=== PATIENT | female | born 1970 | race African-American/Black ===

== ENCOUNTER 2023-02-26 14:26 | Emergency (ER) | payer MEDICAID ==
[~2023-02-26] VITALS: Ht 162.6 cm; Wt 104.5 kg
[2023-02-26 14:28] VITALS: TEMP 98.5
[2023-02-26] MEDS ORDERED: KETOROLAC TROMETHAMINE 30 MG/ML VIAL IM ONE (15:45)
[2023-02-26 16:00] VITALS: BP 145/71; PULSE 78; RESP 17
[2023-02-26] MEDS ORDERED: IBUP-1492 PO (16:40)
== END 2023-02-26 16:44 | disposition home or self-care (01) ==
LOC: EMS 14:26
DX: S93.402A Sprain of unspecified ligament of left ankle, initial encounter (principal); Z98.51 Tubal ligation status; X58.XXXA Exposure to other specified factors, initial encounter; Y93.89 Activity, other specified; Y92.89 Other specified places as the place of occurrence of the external cause; Y99.8 Other external cause status
CPT/HCPCS: 99283; 73610; 96372; J1885

== ENCOUNTER 2023-12-20 23:44 | Emergency (ER) | payer MEDICAID ==
[~2023-12-20] VITALS: Ht 160 cm; Wt 90.0 kg
[~2023-12-20 23:44] MED LIST: IBUP-1492 PO
[2023-12-20 23:54] VITALS: TEMP 98.1
[2023-12-21] MEDS: PROPARACAINE HCL 0.5% 15 ML OPHTHALMIC SOLUTION OS ONE (03:18)
[2023-12-21] MEDS: ERYTHROMYCIN 0.5% 3.5 GM TUBE OPHTHALMIC OINTMENT OS ONE (03:19)
[2023-12-21] MEDS: FLUORESCEIN SODIUM 1 MG STRIP OS ONE (03:20)
[2023-12-21] MEDS ORDERED: ERYT3.5O8 OU (04:11)
[2023-12-21 04:28] VITALS: BP 169/100; PULSE 56; RESP 16
== END 2023-12-21 04:51 | disposition home or self-care (01) ==
LOC: EMS 23:44
DX: T15.02XA Foreign body in cornea, left eye, initial encounter (principal); T65.891A Toxic effect of other specified substances, accidental (unintentional), initial encounter; Z98.51 Tubal ligation status; Y92.89 Other specified places as the place of occurrence of the external cause
CPT/HCPCS: 65205; 65220; 99284; J9035; Z7502; Z7610

== ENCOUNTER 2025-07-21 18:36 | Emergency (ER) | payer MEDICAID, OTHER ==
[~2025-07-21] VITALS: Ht 160 cm; Wt 94.1 kg
[~2025-07-21 18:36] MED LIST changes: +ERYT3.5O8 OU
[2025-07-21 19:25] VITALS: TEMP 98.205296
[2025-07-21] MEDS: KETOROLAC TROMETHAMINE 30 MG/ML VIAL IM ONE (19:40)
[2025-07-21] MEDS: LIDOCAINE 5% TRANSDERMAL PATCH TD ONE (19:40)
[2025-07-21] MEDS ORDERED: LIDO-57 TP (19:56)
[2025-07-21] MEDS ORDERED: ACET-2247 PO (19:56)
[2025-07-21] MEDS ORDERED: IBUP-1492 PO (19:56)
[2025-07-21 20:30] VITALS: BP 142/73; PULSE 60; RESP 16; O2SAT 98
== END 2025-07-21 20:50 | disposition home or self-care (01) ==
LOC: EMS 18:36
DX: M54.6 Pain in thoracic spine (principal); M54.50 Low back pain, unspecified; Z98.51 Tubal ligation status; V43.52XA Car driver injured in collision with other type car in traffic accident, initial encounter; Y93.89 Activity, other specified; Y92.410 Unspecified street and highway as the place of occurrence of the external cause; Y99.8 Other external cause status
CPT/HCPCS: 99283; 96372; J1885